=== PATIENT | male | born 1925 | race Caucasian/White ===

== ENCOUNTER → 2016-10-26 | Outpatient (CLI) | payer MEDICARE, BC ==
--- NOTE | 2016-10-27 19:55 | ECHOF ---
Referral Reason:I10 htn MEASUREMENTS -------- HEIGHT: 175.3 cm WEIGHT: 95.3 kg BP: IVSd: 1.2 cm (0.6 - 1.1) LVIDd: 2.7 cm (3.9 - 5.3) LVPWd: 1.1 cm (0.6 - 1.1) IVSs: 2.0 cm LVIDs: 1.2 cm LVPWs: 1.3 cm Ao Diam: 5.0 cm (2.0 - 3.7) MV EXCURSION: 23.601 mm (> 18.000) MV EF SLOPE: 146 mm/s (70 - 150) EPSS: 2.5 cm MV E Bharathi: 0.76 m/s MV DecT: 292 ms MV A Bharathi: 1.14 m/s MV E/A Ratio: 0.67 AV maxP.16 mmHg AV meanP.96 mmHg AR PHT: 1236 ms RAP: 5.00 mmHg RVSP: 27.35 mmHg FINDINGS -------- Sinus rhythm. This was a technically good study. There is mild concentric left ventricular hypertrophy. Overall left ventricular systolic function is normal with, an EF between 55 - 60 %. The right ventricle is normal in size and function. The left atrium is normal in size. The right atrium is normal in size. Aortic valve is trileaflet and is moderately thickened. There is mild aortic regurgitation. There is mild aortic stenosis present. Peak/mean gradient across the Aortic Valve is 24.16mmHg / 12.96mmHg. The mitral valve leaflets are mildly thickened. Mild mitral regurgitation is present. Mild tricuspid regurgitation present. The right ventricular systolic pressure, as measured by Doppler, is 27.35mmHg. Pulmonic valve appears structurally normal. The aortic root, ascending aorta and aortic arch are normal. The pericardium is normal. CONCLUSIONS -------- 1. Sinus rhythm. 2. There is mild aortic stenosis present. 3. Peak/mean gradient across the Aortic Valve is 24.16mmHg / 12.96mmHg. 4. The mitral valve leaflets are mildly thickened. 5. Mild mitral regurgitation is present. 6. Mild tricuspid regurgitation present. 7. The right ventricular systolic pressure, as measured by Doppler, is 27.35mmHg. 8. Pulmonic valve appears structurally normal. 9. The aortic root, ascending aorta and aortic arch are normal. 10. The pericardium is normal. 11. This was a technically good study. 12. There is mild concentric left ventricular hypertrophy. 13. Overall left ventricular systolic function is normal with, an EF between 55 - 60 %. 14. The right ventricle is normal in size and function. 15. The left atrium is normal in size. 16. The right atrium is normal in size. 17. Aortic valve is trileaflet and is moderately thickened. 18. There is mild aortic regurgitation. RAG ROOM SUPERVISOR: Sharon Mccurdy RDCS
== END | disposition home or self-care (01) ==
LOC: RADECHMAIN 13:06
PROVIDERS: ATTEND Family Medicine
DX: I10 Essential (primary) hypertension (principal)
CPT/HCPCS: 93306